=== PATIENT | female | born 1980 | race Two or more races ===

== ENCOUNTER 2020-08-21 13:42 | Emergency (ER) | payer OTHER, SELFPAY ==
--- NOTE | 2020-08-21 | ECG_ITS ---
Test Reason : cp Blood Pressure : / mmHG Vent. Rate : 084 BPM Atrial Rate : 084 BPM P-R Int : 136 ms QRS Dur : 088 ms QT Int : 404 ms P-R-T Axes : 049 009 015 degrees QTc Int : 477 ms Normal sinus rhythm with sinus arrhythmia Normal ECG When compared with ECG of 11-OCT-2016 18:49, No significant change was found Referred By: Generic ED Physician Electronically Signed By:CARLOS MOORE
--- NOTE | 2020-08-21 13:51 | XR_ITS ---
EXAMINATION: XR CHEST CLINICAL INFORMATION: Chest pain. COMPARISON: None TECHNIQUE: Frontal view of the chest was obtained. FINDINGS: No significant abnormality is noted involving the heart, lungs, mediastinum, bony thorax or soft tissues. IMPRESSION: Unremarkable examination.
--- NOTE | 2020-08-21 13:52 | ED_ITS ---
HPI - Chest Pain General Chief Complaint: Chest Pain <THEO Mays - Last Filed: 08/21/20 16:18> Stated Complaint: high blood pressure <THEO Mays - Last Filed: 08/21/20 16:18> Time Seen by Provider: 08/21/20 13:50 <THEO Mays - Last Filed: 08/21/20 16:18> Source: patient <THEO Mays - Last Filed: 08/21/20 16:18> Mode of arrival: ambulatory <THEO Mays - Last Filed: 08/21/20 16:18> Limitations: no limitations <THEO Mays - Last Filed: 08/21/20 16:18> History of Present Illness HPI narrative: 40 yo female presenting with intermittent, non-radiating central chest pressue and high blood pressure that started a few days ago. She has been on low dose Norvasc 2.5 mg daily with stable BP. She was trialed off of it a few months ago but needed to be restarted in June per patient. She states her usual BP is 130-140's systolic, but over the last few days she's noticed it has gone up to 150-160's and is associated with intermittent chest pressure, nausea and dizziness. She has been compliant with her Norvasc but admits to taking it late yesterday. She denies change in diet or salt intake. Admits to increased stress at home and recent of her family dog. Denies headache, vision changes or SOB. <THEO Mays - Last Filed: 08/21/20 16:18> MD complaint: chest heaviness <THEO Mays - Last Filed: 08/21/20 16:18> Onset (ago): day(s) (2) <THEO Mays - Last Filed: 08/21/20 16:18> Timing of current episode: episodic <THEO Mays - Last Filed: 08/21/20 16:18> Prior episodes: Yes <THEO Mays Last Filed: 08/21/20 16:18> Onset: during rest and during exertion <THEO Mays - Last Filed: 08/21/20 16:18> Pain location: substernal <THEO Mays - Last Filed: 08/21/20 16:18> Pain radiation: none <THEO Mays - Last Filed: 08/21/20 16:18> Severity: moderate <THEO Mays - Last Filed: 08/21/20 16:18> Quality: heaviness <THEO Mays - Last Filed: 08/21/20 16:18> Relieving factors: rest <THEO Mays - Last Filed: 08/21/20 16:18> Exacerbating factors: nothing <THEO Mays Last Filed: 08/21/20 16:18> Associated symptoms: nausea and leg swelling <THEO Mays - Last Filed: 08/21/20 16:18> Treatment prior to arrival: none <THEO Mays Last Filed: 08/21/20 16:18> Risk Factors Thoracic aortic dissection risk factors: longstanding hypertension <THEO Mays Last Filed: 08/21/20 16:18> Related Data On Oral Contraceptives: No <THEO Mays Last Filed: 08/21/20 16:18> Home Medications: Home Medications Medication Instructions Recorded Confirmed amlodipine 2.5 mg PO DAILY 08/21/20 08/21/20 lorazepam [Ativan] 0.5 mg PO BEDTIME PRN 08/21/20 08/21/20 omeprazole 20 mg PO DAILY 08/21/20 08/21/20 <THEO Mays Last Filed: 08/21/20 16:18> Allergies/Adverse Reactions: Allergies Allergy/AdvReac Type Severity Reaction Status Date / Time ibuprofen [IBUPROFEN] Allergy Intermediate ANGIOEDEMA Verified 08/21/20 14:27 SEAFOOD Allergy Unknown HIVES Uncoded 08/05/20 16:36 shellfish Allergy Unknown Anaphylaxis Uncoded 08/21/20 14:27 <THEO Mays Last Filed: 08/21/20 16:18> Review of Systems Review of Systems: Constitutional: No Fever, No Chills ENT/Mouth: No sore throat, No Rhinorrhea, No Swallowing Difficulty Eyes: No Eye Pain, No Swelling, No Redness Cardiovascular: negative SOB, No Orthopnea, positive Edema (chronically) Respiratory: No Cough, No Sputum, No Wheezing, no dyspnea Gastrointestinal: positive Nausea, No Vomiting, No Diarrhea, No abdominal Pain, No Hematochezia, No Melena Genitourinary: No Dysuria, No Urinary Frequency, No Hematuria Musculoskeletal: No joint pain, No Myalgias Skin: No Skin Lesions, No rash Neuro: No Weakness, No Numbness, positive positional Dizziness, No Headache Psych: positive Anxiety/Panic, No Depresion, positive stress at home Heme/Lymph: No Bruising, No Lymphadenopathy Endocrine: No Polyuria, No Polydipsia All other 10 point ROS are negative. <THEO Mays - Last Filed: 08/21/20 16:18> [facility] Past Medical History Attestation statement: The following information was validated with the patient. <THEO Manning - Last Filed: 08/21/20 16:18> Medical History: Medical History (Updated 08/21/20 @ 16:17 by THEO Mays) HTN (hypertension) Ovary absent <THEO Mays - Last Filed: 08/21/20 16:18> Social History Social History: Social History Alcohol intake: never Smoked in Last 30 Days: No Use of substances other than those prescribed or required for medical reasons: No Advance Directives: No Advance Directives Information Provided: No <THEO Mays - Last Filed: 08/21/20 16:18> Physical Exam Vital Signs and I&O and Narrative: Vital Signs and I&O: Vital Signs Temp 98.6 F 08/21/20 15:26 Pulse 88 08/21/20 15:26 Resp 20 08/21/20 15:26 BP 147/99 H 08/21/20 15:26 Pulse Ox 99 08/21/20 15:26 Intake & Output 08/21/20 08/21/20 08/22/20 06:59 18:59 06:59 Weight 185 kg Body Mass Index 69.9 Appearance: Alert. Oriented X3. No acute distress. Eyes: Pupils equal, round and reactive to light. ENT: Pharynx normal. Neck: Normal inspection. Neck supple. CVS: Normal heart rate and rhythm. Pulses normal. Respiratory: No respiratory distress. Breath sounds normal. Abdomen: Soft and nontender. +BS x4 Skin: Skin warm and dry. Normal skin color. Normal skin turgor. No rashes. Extremities: No lower extremity edema. Neuro: Oriented X 3. No motor deficit. No sensory deficit. <THEO Mays Last Filed: 08/21/20 16:18> Vital Signs and I&O: Vital Signs Temp 98.6 F 08/21/20 15:26 Pulse 88 08/21/20 15:26 Resp 20 08/21/20 15:26 BP 147/99 H 08/21/20 15:26 Pulse Ox 99 08/21/20 15:26 Intake & Output 08/21/20 08/21/20 08/22/20 06:59 18:59 06:59 Weight 185 kg Body Mass Index 69.9 <José Rice DO - Last Filed: 08/21/20 19:26> Course Course Hospital Course: BP 171/108 on arrival. She is in no distress, reports mild chest pressure at this time and nausea. She is anxious. No SOB or diaphoresis. No significant family history. Patient reassured and repeat BP improved to 158/94. Low dose morphine and Zofran ordered for now. Hold off on additional antihypertensives for now. Low suspicion for dissection or PE. Wells score 0. EKG showed no ische noel changes. Will r/o ACS with high-sensitivity troponin. <THEO Mays - Last Filed: 08/21/20 16:18> Reevaluation(s) Reevaluation #1: BP improved to the 140's systolic. Orthostatics negative, increased with standing. Troponin negative. No need to repeat given onset of chest pain was 1-2 days ago. Patient is stable for discharge with plan to f/u [facility] PCP. <THEO Mays - Last Filed: 08/21/20 16:18> Time: 16:09 <THEO Mays - Last Filed: 08/21/20 16:18> MDM - Chest Pain Differential Diagnosis Differential diagnosis: Likely fracture of rib, stable angina, unstable angina pectoris, atypical chest pain, st elevation myocardial infarction, costochondritis, chest pain and biliary colic <THEO Mays - Last Filed: 08/21/20 16:18> Lab Data Result diagrams: : 08/21/20 14:23 08/21/20 14:23 <THEO Mays - Last Filed: 08/21/20 16:18> Labs: Lab Results 08/21/20 08/21/20 08/21/20 Range/Units 14:23 14:23 14:23 WBC 8.0 (4.8-10.8) X10*3/uL RBC 5.12 (4.20-5.50) X10*6/uL Hgb 13.7 (12.0-16.0) g/dl Hct 43.9 (37-47) % MCV 85.7 (80-98) fL MCH 26.8 L (27.0-33.0) pg MCHC 31.2 (31.0-35.0) g/dl RDW 12.6 (11.0-16.0) % Plt Count 221 (160-400) X10*3/uL MPV 11.7 (9.4-12.3) fL Immature Gran % (Auto) 0.2 (0.0-0.4) % Neut % (Auto) 49.3 (45-73) % Lymph % (Auto) 39.0 (20-40) % Crane % (Auto) 8.3 (2-11) % Eos % (Auto) 2.2 (0-4) % Baso % (Auto) 1.0 (0-2) % Neut # (Auto) 4.0 (2.0-8.3) X10*3/uL Lymph # (Auto) 3.1 (1.2-4.9) X10*3/uL Crane # (Auto) 0.7 (0.1-1.2) X10*3/uL Eos # (Auto) 0.2 (0.0-0.4) X10*3/uL Baso # (Auto) 0.1 (0.0-0.2) X10*3/uL Abs Immat Gran (auto) 0.02 (0.00-0.03) X10*3/uL Absolute Nucleated RBC 0.000 (0.0-0.012) X10*3/uL Nucleated RBC % (auto) 0.0 (0.0-0.2) /100WBC Hold Blue Top SEE NOTE Sodium 141 (135-145) mmol/L Potassium 4.0 (3.3-5.1) mmol/l Chloride 103 (96-108) mmol/L Carbon Dioxide 30 H (22-29) mmol/L Anion Gap 12 (12-20) BUN 8 L (9-16) mg/dL Creatinine 0.85 (0.5-1.4) mg/dL Estim Creat Clear Calc 146.8 Estimated GFR > 60 Random Glucose 98 (60-115) mg/dL Calcium 9.8 (8.4-10.2) mg/dL Total Bilirubin 0.6 (0.0-1.0) mg/dL Direct Bilirubin 0.3 (0.0-0.5) mg/dL AST 196 H (5-31) U/L ALT 230 H (0-31) U/L Alkaline Phosphatase 82 (39-117) U/L Troponin I High Sens (<3.5-17.0) ng/L B-Natriuretic Peptide (<100) pg/mL Total Protein 6.9 (6.5-8.0) g/dL Albumin 4.1 (3.5-5.0) g/dL 08/21/20 Range/Units 14:23 WBC (4.8-10.8) X10*3/uL RBC (4.20-5.50) X10*6/uL Hgb (12.0-16.0) g/dl Hct (37-47) % MCV (80-98) fL MCH (27.0-33.0) pg MCHC (31.0-35.0) g/dl RDW (11.0-16.0) % Plt Count (160-400) X10*3/uL MPV (9.4-12.3) fL Immature Gran % (Auto) (0.0-0.4) % Neut % (Auto) (45-73) % Lymph % (Auto) (20-40) % Crane % (Auto) (2-11) % Eos % (Auto) (0-4) % Baso % (Auto) (0-2) % Neut # (Auto) (2.0-8.3) X10*3/uL Lymph # (Auto) (1.2-4.9) X10*3/uL Crane # (Auto) (0.1-1.2) X10*3/uL Eos # (Auto) (0.0-0.4) X10*3/uL Baso # (Auto) (0.0-0.2) X10*3/uL Abs Immat Gran (auto) (0.00-0.03) X10*3/uL Absolute Nucleated RBC (0.0-0.012) X10*3/uL Nucleated RBC % (auto) (0.0-0.2) /100WBC Hold Blue Top Sodium (135-145) mmol/L Potassium (3.3-5.1) mmol/l Chloride (96-108) mmol/L Carbon Dioxide (22-29) mmol/L Anion Gap (12-20) BUN (9-16) mg/dL Creatinine (0.5-1.4) mg/dL Estim Creat Clear Calc Estimated GFR Random Glucose (60-115) mg/dL Calcium (8.4-10.2) mg/dL Total Bilirubin (0.0-1.0) mg/dL Direct Bilirubin (0.0-0.5) mg/dL AST (5-31) U/L ALT (0-31) U/L Alkaline Phosphatase (39-117) U/L Troponin I High Sens < 3.5 (<3.5-17.0) ng/L B-Natriuretic Peptide < 10 (<100) pg/mL Total Protein (6.5-8.0) g/dL Albumin (3.5-5.0) g/dL <THEO Mays - Last Filed: 08/21/20 16:18> Lab Results 08/21/20 08/21/20 08/21/20 Range/Units 14:23 14:23 14:23 WBC 8.0 (4.8-10.8) X10*3/uL RBC 5.12 (4.20-5.50) X10*6/uL Hgb 13.7 (12.0-16.0) g/dl Hct 43.9 (37-47) % MCV 85.7 (80-98) fL MCH 26.8 L (27.0-33.0) pg MCHC 31.2 (31.0-35.0) g/dl RDW 12.6 (11.0-16.0) % Plt Count 221 (160-400) X10*3/uL MPV 11.7 (9.4-12.3) fL Immature Gran % (Auto) 0.2 (0.0-0.4) % Neut % (Auto) 49.3 (45-73) % Lymph % (Auto) 39.0 (20-40) % Crane % (Auto) 8.3 (2-11) % Eos % (Auto) 2.2 (0-4) % Baso % (Auto) 1.0 (0-2) % Neut # (Auto) 4.0 (2.0-8.3) X10*3/uL Lymph # (Auto) 3.1 (1.2-4.9) X10*3/uL Crane # (Auto) 0.7 (0.1-1.2) X10*3/uL Eos # (Auto) 0.2 (0.0-0.4) X10*3/uL Baso # (Auto) 0.1 (0.0-0.2) X10*3/uL Abs Immat Gran (auto) 0.02 (0.00-0.03) X10*3/uL Absolute Nucleated RBC 0.000 (0.0-0.012) X10*3/uL Nucleated RBC % (auto) 0.0 (0.0-0.2) /100WBC Hold Blue Top SEE NOTE Sodium 141 (135-145) mmol/L Potassium 4.0 (3.3-5.1) mmol/l Chloride 103 (96-108) mmol/L Carbon Dioxide 30 H (22-29) mmol/L Anion Gap 12 (12-20) BUN 8 L (9-16) mg/dL Creatinine 0.85 (0.5-1.4) mg/dL Estim Creat Clear Calc 146.8 Estimated GFR > 60 Random Glucose 98 (60-115) mg/dL Calcium 9.8 (8.4-10.2) mg/dL Total Bilirubin 0.6 (0.0-1.0) mg/dL Direct Bilirubin 0.3 (0.0-0.5) mg/dL AST 196 H (5-31) U/L ALT 230 H (0-31) U/L Alkaline Phosphatase 82 (39-117) U/L Troponin I High Sens (<3.5-17.0) ng/L B-Natriuretic Peptide (<100) pg/mL Total Protein 6.9 (6.5-8.0) g/dL Albumin 4.1 (3.5-5.0) g/dL 08/21/20 Range/Units 14:23 WBC (4.8-10.8) X10*3/uL RBC (4.20-5.50) X10*6/uL Hgb (12.0-16.0) g/dl Hct (37-47) % MCV (80-98) fL MCH (27.0-33.0) pg MCHC (31.0-35.0) g/dl RDW (11.0-16.0) % Plt Count (160-400) X10*3/uL MPV (9.4-12.3) fL Immature Gran % (Auto) (0.0-0.4) % Neut % (Auto) (45-73) % Lymph % (Auto) (20-40) % Crane % (Auto) (2-11) % Eos % (Auto) (0-4) % Baso % (Auto) (0-2) % Neut # (Auto) (2.0-8.3) X10*3/uL Lymph # (Auto) (1.2-4.9) X10*3/uL Crane # (Auto) (0.1-1.2) X10*3/uL Eos # (Auto) (0.0-0.4) X10*3/uL Baso # (Auto) (0.0-0.2) X10*3/uL Abs Immat Gran (auto) (0.00-0.03) X10*3/uL Absolute Nucleated RBC (0.0-0.012) X10*3/uL Nucleated RBC % (auto) (0.0-0.2) /100WBC Hold Blue Top Sodium (135-145) mmol/L Potassium (3.3-5.1) mmol/l Chloride (96-108) mmol/L Carbon Dioxide (22-29) mmol/L Anion Gap (12-20) BUN (9-16) mg/dL Creatinine (0.5-1.4) mg/dL Estim Creat Clear Calc Estimated GFR Random Glucose (60-115) mg/dL Calcium (8.4-10.2) mg/dL Total Bilirubin (0.0-1.0) mg/dL Direct Bilirubin (0.0-0.5) mg/dL AST (5-31) U/L ALT (0-31) U/L Alkaline Phosphatase (39-117) U/L Troponin I High Sens < 3.5 (<3.5-17.0) ng/L B-Natriuretic Peptide < 10 (<100) pg/mL Total Protein (6.5-8.0) g/dL Albumin (3.5-5.0) g/dL <José Rice DO - Last Filed: 08/21/20 19:26> ECG Data ECG #1: Attestation: I personally reviewed and interpreted this ECG as follows: <THEO Mays - Last Filed: 08/21/20 16:18> ECG interpretation date: 08/21/20 <THEO Mays - Last Filed: 08/21/20 16:18> ECG interpretation time: 13:55 <THEO Mays - Last Filed: 08/21/20 16:18> Interpretation: normal sinus rhythm with HR 84 bpm, normal WI interval <THEO Mays - Last Filed: 08/21/20 16:18> Critical Care Time Critical Care Time Critical Care Time: No <THEO Mays - Last Filed: 08/21/20 16:18> Discharge Plan Discharge Clinical Impression: Transaminitis Chest pain Qualifiers: Chest pain type: unspecified Qualified Code(s): R07.9 - Chest pain, unspecified Hypertension Qualifiers: Hypertension type: essential hypertension Qualified Code(s): I10 - Essential (primary) hypertension <THEO Mays - Last Filed: 08/21/20 16:18> Patient Disposition: Home, Self-Care <THEO Mays - Last Filed: 08/21/20 16:18> Instructions: Chronic Hypertension (ED) <THEO Mays - Last Filed: 08/21/20 16:18> Additional Instructions: Continue taking your amlodipine as directed. Monitor your blood pressure daily at home. Follow up with your PCP this week for possible medication adjustment. Today in the ER your blood pressure improved and no medication adjustment was needed. Your lab work showed elevation of your liver enzymes which is non-specific. Recommend you get repeat blood work with your doctor this week. Stick to a low salt, heart healthy diet. If you develop recurrent chest pain, headache or dizziness come back to the ER for further evaluation. <THEO Mays - Last Filed: 08/21/20 16:18> Prescriptions: No Action amlodipine 2.5 mg Tablet 2.5 mg PO DAILY RF: 0 lorazepam [Ativan] 0.5 mg Tablet 0.5 mg PO BEDTIME PRN (Reason: Anxiety) RF: 0 omeprazole 20 mg Capsule,Delayed Release(Dr/Ec) 20 mg PO DAILY RF: 0 <THEO Mays - Last Filed: 08/21/20 16:18> Referrals: Dexter Perea MD [Physician] - 1 week <THEO Mays - Last Filed: 08/21/20 16:18> Interventions: ED Discharge Assessment Last Done: 08/21/20 16:55 <THEO Mays - Last Filed: 08/21/20 16:18> Discharge Date/Time: 08/21/20 16:56 <THEO Mays - Last Filed: 08/21/20 16:18>
[2020-08-21 13:53] VITALS: BP 171/108; PULSE 80; RESP 16; TEMP 37.1; O2SAT 99; BMI 69.9
[2020-08-21 14:27] VITALS: BP 158/94
[2020-08-21] MEDS: Morphine Sulfate 2 MG/ML CARTRIDGE IVPUSH (14:31)
[2020-08-21] MEDS: ondansetron HCL 4 MG/2 ML VIAL IVPUSH (14:31)
[2020-08-21 14:34] LABS: MANUAL DIFF FLAG NO
[2020-08-21 14:36] LABS: Basophils Absolute Auto 0.1 X10*3/uL (0.0-0.2); Eosinophils Absolute Auto 0.2 X10*3/uL (0.0-0.4); Eosinophils Percent Auto 2.2 % (0-4); Hematocrit 43.9 % (37-47); Hemoglobin 13.7 g/dl (12.0-16.0); Imm Gran Abs Auto 0.02 X10*3/uL (0.00-0.03); Imm Gran Pct Auto 0.2 % (0.0-0.4); Lymphocytes Absolute Auto 3.1 X10*3/uL (1.2-4.9); Mean Corpuscular HGB Conc 31.2 g/dl (31.0-35.0); Mean Corpuscular Hemoglobin 26.8 pg (27.0-33.0); Mean Corpuscular Volume 85.7 fL (80-98); Mean Platelet Volume 11.7 fL (9.4-12.3); Monocytes Absolute Auto 0.7 X10*3/uL (0.1-1.2); Monocytes Percent Auto 8.3 % (2-11); Neutrophils Percent Auto 49.3 % (45-73); Platelet Count 221 X10*3/uL (160-400); Red Blood Count 5.12 X10*6/uL (4.20-5.50); Red Cell Distribution Width 12.6 % (11.0-16.0)
[2020-08-21 15:00] LABS: Alanine Aminotransferase 230 U/L (0-31); Albumin Level 4.1 g/dL (3.5-5.0); Alkaline Phosphatase 82 U/L (39-117); Anion Gap 12 (12-20); Aspartate Amino Transferase 196 U/L (5-31); B Type Natriuretic Peptide < 10 pg/mL (<100); Bilirubin Direct 0.3 mg/dL (0.0-0.5); Bilirubin Total 0.6 mg/dL (0.0-1.0); Blood Urea Nitrogen 8 mg/dL (9-16); Calcium 9.8 mg/dL (8.4-10.2); Carbon Dioxide 30 mmol/L (22-29); Chloride 103 mmol/L (96-108); Creatinine Clr Calc Pharmacy 146.8; Estimated Glomerular Filt Rate > 60; Glucose Random 98 mg/dL (60-115); Sodium 141 mmol/L (135-145); Total Protein 6.9 g/dL (6.5-8.0); Troponin-I High Sensitivity < 3.5 ng/L (<3.5-17.0)
[2020-08-21 15:26] VITALS: BP 130/85; BP 147/99; PULSE 79; PULSE 88; RESP 20; TEMP 37; O2SAT 99
== END 2020-08-21 16:56 | disposition home or self-care (01) ==
PROVIDERS: Physician Assistant; Emergency Provider Emergency Medicine; PCP Nurse Practitioner
DX: R07.9 Chest pain, unspecified (principal); I10 Essential (primary) hypertension; Z79.899 Other long term (current) drug therapy
CPT/HCPCS: 36415; 71045; 80048; 80076; 83880; 84484; 85025; 93005; 93010; 96374; 96375; 99284; J2270; J2405

== ENCOUNTER 2023-01-24 12:55 | Emergency (ER) | payer OTHER, SELFPAY ==
--- NOTE | ~2023-01-24 | XR_ITS ---
EXAMINATION: XR CHEST CLINICAL INFORMATION: Cough COMPARISON: 08/21/2020 TECHNIQUE: 2 views of the chest were obtained. FINDINGS: The lungs are well expanded. No edema or effusion. There is a hazy opacity at the right midlung.. No pneumothorax. The cardiomediastinal silhouette is within normal limits. No acute osseous abnormality. XR/XR chest 2V IMPRESSION: Hazy opacity at the right midlung could represent atelectasis or pneumonia. Follow-up after treatment to ensure resolution.
--- NOTE | 2023-01-24 12:57 | ECG_ITS ---
Test Reason : JONESEDYTA Blood Pressure : / mmHG Vent. Rate : 078 BPM Atrial Rate : 078 BPM P-R Int : 150 ms QRS Dur : 086 ms QT Int : 406 ms P-R-T Axes : 039 004 001 degrees QTc Int : 462 ms Normal sinus rhythm Nonspecific ST and T wave abnormality Borderline ECG When compared with ECG of 21-AUG-2020 13:45, Nonspecific ST and T wave abnormality seen Referred By: Generic ED Physician Electronically Signed By:RAMESH RASMUSSEN
[2023-01-24 12:58] VITALS: BP 178/121; PULSE 99; RESP 18; TEMP 36.1; O2SAT 99; BMI 33.6
--- NOTE | 2023-01-24 13:00 | ED.CHESTPAIN ---
HPI - Chest Pain General Chief Complaint: Upper Respiratory Symptoms <THEO Mays - Last Filed: 01/24/23 13:05> Stated Complaint: Chest pain/Asthma <THEO Mays - Last Filed: 01/24/23 13:05> Time Seen by Provider: 01/24/23 13:48 <THEO Mays - Last Filed: 01/24/23 13:05> Source: patient <THEO Dunn Last Filed: 01/24/23 16:48> Mode of arrival: ambulatory <THEO Dunn Last Filed: 01/24/23 16:48> Limitations: no limitations <THEO Dunn Last Filed: 01/24/23 16:48> History of Present Illness HPI narrative: Pt is a 42 y/o female with pMHX of htn, GERD, and asthma, cc chest wall pain and unproductive cough that started 5 days ago. She explains that she has reflux that tends to wake her up at times and she tries to sleep with a couple of pillows. She sometimes has a cough for a couple days after experiencing these episodes of GERD and originally related her symptoms to that. She explains that Sunday and Sunday she was not feeling well and then yesterday she started having pain on the left side of her chest that radiates to the back and increases with coughing and inspiration. She has used her rescue inhaler which helps a little. She also said she has had a headache and nausea at times throughout the past few days. She denies fever, dizziness, sob, abd pain, vomiting, diarrhea, pelvic pain or extremity pain. <THEO Dunn Last Filed: 01/24/23 16:48> MD complaint: chest pain <THEO Dunn Last Filed: 01/24/23 16:48> Pertinent past history: asthma and other (related cough preceding the pain) <THEO Dunn Last Filed: 01/24/23 16:48> Onset (ago): day(s) (5) <THEO Dunn Last Filed: 01/24/23 16:48> Timing of current episode: episodic <THEO Dunn Last Filed: 01/24/23 16:48> Onset: other (started with coughing episodes) <THEO Dunn Last Filed: 01/24/23 16:48> Pain location: left chest <THEO Dunn Last Filed: 01/24/23 16:48> Pain radiation: back <THEO Dunn Last Filed: 01/24/23 16:48> Severity: mild <THEO Dunn Last Filed: 01/24/23 16:48> Quality: aching <THEO Dunn Last Filed: 01/24/23 16:48> Exacerbating factors: inspiration <THEO Dunn Last Filed: 01/24/23 16:48> Associated symptoms: cough <THEO Dunn Last Filed: 01/24/23 16:48> Treatment prior to arrival: none <THEO Dunn Last Filed: 01/24/23 16:48> Risk Factors Coronary artery disease risk factors: hypertension <THEO Dunn Last Filed: 01/24/23 16:48> Related Data Home Medications: Home Medications Medication Instructions Recorded Confirmed amlodipine 2.5 mg tablet 2.5 mg PO DAILY 08/21/20 08/21/20 lorazepam 0.5 mg tablet (Ativan) 0.5 mg PO BEDTIME PRN Anxiety 08/21/20 08/21/20 omeprazole 20 mg capsule,delayed 20 mg PO DAILY 08/21/20 08/21/20 release Previous Rx's Medication Instructions Recorded benzonatate 100 mg capsule 100 mg PO BID PRN cough 7 days #14 01/24/23 caps doxycycline hyclate 100 mg tablet 100 mg PO BID 7 days #14 tabs 01/24/23 omeprazole 20 mg capsule,delayed 20 mg PO DAILY #30 caps 01/24/23 release prednisone 20 mg tablet 20 mg PO DAILY 7 days #7 tabs 01/24/23 <THEO Mays Last Filed: 01/24/23 13:05> Allergies/Adverse Reactions: Allergies Allergy/AdvReac Type Severity Reaction Status Date / Time ibuprofen [IBUPROFEN] Allergy Intermediate ANGIOEDEMA Verified 08/21/20 14:27 SEAFOOD Allergy Unknown HIVES Uncoded 08/05/20 16:36 shellfish Allergy Unknown Anaphylaxis Uncoded 08/21/20 14:27 <Yamilet Durbin [facility] Last Filed: 01/24/23 13:05> Review of Systems Constitutional: Constitutional: Reports no additional constitutional complaints, Denies chills, Denies fever(s) and Denies night sweats <THEO Dunn Last Filed: 01/24/23 16:48> Eyes: Eyes: Reports no additional eye complaints, Denies blurry vision, Denies change in vision, Denies diplopia, Denies eye discharge, Denies loss of vision and Denies eye pain <Laura Headley [facility] Last Filed: 01/24/23 16:48> ENT: Denies dizziness <THEO Dunn Last Filed: 01/24/23 16:48> Cardiovascular: Cardiovascular: Reports no additional cardiovascular complaints, Reports chest pain, Denies lightheadedness, Denies Loss of Consciousness and Denies dyspnea <THEO Dunn Last Filed: 01/24/23 16:48> Respiratory: Respiratory: Reports no additional respiratory complaints, Reports cough and Denies dyspnea <THEO Dunn Last Filed: 01/24/23 16:48> Gastrointestinal: Gastrointestinal: Reports no additional gastrointestinal complaints, Denies abdominal pain, Denies melena, Denies hematochezia, Denies change in bowel habits and Denies change in stool character <THEO Dunn Last Filed: 01/24/23 16:48> Genitourinary: Genitourinary: Denies hematuria, Denies urinary frequency, Denies dysuria, Denies urinary incontinence, Denies urinary hesitancy and Denies urinary urgency <THEO Dunn Last Filed: 01/24/23 16:48> Musculoskeletal: Musculoskeletal: Reports no additional musculoskeletal complaints, Denies numbness and Denies tingling <THEO Dunn Last Filed: 01/24/23 16:48> Neurologic: Denies dizziness, Denies loss of vision, Denies numbness and Denies tingling <THEO Dunn Last Filed: 01/24/23 16:48> Psychiatric: Psychiatric: Reports no additional psychiatric complaints <THEO Dunn Last Filed: 01/24/23 16:48> Endocrine: Endocrine: Reports no additional endocrine complaints <THEO Dunn - Last Filed: 01/24/23 16:48> Hematologic/Lymphatic: Hematologic/Lymphatic: Reports no additional hematologic/lymphatic complaints <THEO Dunn - Last Filed: 01/24/23 16:48> Allergic/Immunologic: Allergic/Immunologic: Reports no additional allergic/immunologic complaints <THEO Dunn - Last Filed: 01/24/23 16:48> PMFSH Past Medical History Attestation statement: The following information was validated with the patient. <THEO Dunn - Last Filed: 01/24/23 16:48> Source: old records reviewed and nursing notes reviewed <THEO Dunn - Last Filed: 01/24/23 16:48> Medical History: Medical History HTN (hypertension) Ovary absent <THEO Mays - Last Filed: 01/24/23 13:05> Social History Social History: Social History Alcohol intake: never Advance Directives: No Advance Directives Information Provided: No <THEO Mays - Last Filed: 01/24/23 13:05> Physical Exam Vital Signs: Vital Signs: Last Vital Signs Temp 97.7 F 01/24/23 14:09 Pulse 87 01/24/23 14:09 Resp 18 01/24/23 14:09 BP 149/98 H 01/24/23 14:09 Pulse Ox 98 01/24/23 14:09 O2 Del Method 01/24/23 14:09 BMI result Body Mass Index 33.6 <THEO Mays - Last Filed: 01/24/23 13:05> Vital Signs: Last Vital Signs Temp 97.7 F 01/24/23 14:09 Pulse 87 01/24/23 14:09 Resp 18 01/24/23 14:09 BP 149/98 H 01/24/23 14:09 Pulse Ox 98 01/24/23 14:09 O2 Del Method 01/24/23 14:09 BMI result Body Mass Index 33.6 <THEO Dunn - Last Filed: 01/24/23 16:48> Const: General: cooperative, no acute distress, alert and awake <Laura Kayode CT - Last Filed: 01/24/23 16:48> Nutritional Appearance: well nourished <Lauragarth Marioshell CT - Last Filed: 01/24/23 16:48> Orientation/consciousness: patient oriented x3 <Laura Marioshell CT - Last Filed: 01/24/23 16:48> Limitations: no limitations <Lauragarth Marioshell CT - Last Filed: 01/24/23 16:48> HEENT: Head: Yes normal to inspection and Yes atraumatic <Laura Marioshell CT - Last Filed: 01/24/23 16:48> Ears: hearing grossly normal bilaterally and external ears normal <Laura Kayode CT - Last Filed: 01/24/23 16:48> General nose exam: Normal external nose present, no nasal discharge noted and no epistaxis <Laura Headley, CT - Last Filed: 01/24/23 16:48> Face and sinus: Yes normal facial exam, No abrasion and No laceration <Laura Headley CT - Last Filed: 01/24/23 16:48> Mouth: Normal oral and palatal mucosa present, no drooling and no muffled voice <Laura Kayode CT - Last Filed: 01/24/23 16:48> Eyes: General: appearance normal, both eyes and all related structures <Lauragarth Marioshell CT - Last Filed: 01/24/23 16:48> Periorbital: periorbital findings normal <Laura Headley CT - Last Filed: 01/24/23 16:48> Eyelids: Yes eyelids normal <Laura Kayode CT - Last Filed: 01/24/23 16:48> Conjunctivae: conjunctivae normal <Laura Headley CT - Last Filed: 01/24/23 16:48> Pupils: Equal, round and reactive pupils present <Laura Headley CT - Last Filed: 01/24/23 16:48> EOM: EOMs intact bilaterally <Laura Headley CT - Last Filed: 01/24/23 16:48> Neck: Neck: Yes normal visual inspection, Yes full ROM and Yes no lymphadenopathy <Laura Headley CT - Last Filed: 01/24/23 16:48> Chest: Chest palpation & inspection: normal inspection of the chest <Laura Headley [facility] Last Filed: 01/24/23 16:48> Resp: Effort & Inspection: normal respiratory effort and able to speak in complete sentences <Laura Headley [facility] Last Filed: 01/24/23 16:48> Auscultation: clear to auscultation bilaterally <Laura Headley CT - Last Filed: 01/24/23 16:48> Cardio: Rate: regular rate <Laura Headley [facility] Last Filed: 01/24/23 16:48> Rhythm: regular rhythm <Laura Headley [facility] Last Filed: 01/24/23 16:48> GI: Inspection: Yes normal to inspection <Laura Headley [facility] Last Filed: 01/24/23 16:48> Palpation (GI): Soft to palpation, not firm, nontender and no guarding <Laura Headley CT - Last Filed: 01/24/23 16:48> Neuro: General: patient oriented x3 and moves all extremities <Laura Headley CT - Last Filed: 01/24/23 16:48> Cranial nerves: Yes Equal, round and reactive pupils present <Laura Headley [facility] Last Filed: 01/24/23 16:48> Cognition (Neuro): normal cognition <Laura Headley [facility] Last Filed: 01/24/23 16:48> Motor exam (neuro): 5/5 motor strength present throughout <Laura Headley [facility] Last Filed: 01/24/23 16:48> Sensory Exam: Normal double simultaneous stimulation for sensation <Laura Headley [facility] Last Filed: 01/24/23 16:48> Coordination: [id number] test normal <Laura Headley [facility] Last Filed: 01/24/23 16:48> Extrem: General: Yes normal to inspection, Yes full ROM and Yes capillary refill normal <Laura Headley [facility] Last Filed: 01/24/23 16:48> Psych: Appearance: grossly normal <Laura Headley [facility] Last Filed: 01/24/23 16:48> Mental Status: mental status grossly normal <Laura Headley CT - Last Filed: 01/24/23 16:48> Affect: normal affect <THEO Dunn - Last Filed: 01/24/23 16:48> Attitude: cooperative <THEO Dunn - Last Filed: 01/24/23 16:48> Thought process: Normal thought process present <THEO Dunn Last Filed: 01/24/23 16:48> Thought content: Normal thought content present <THEO Dunn Last Filed: 01/24/23 16:48> Insight: Good insight present (Psych) <THEO Dunn - Last Filed: 01/24/23 16:48> Course Course Course Narrative: RME - 42 yo female with history of asthma, GERD, HTN, irritable bowel syndrome who presents to the ER for evaluation of chest pain since yesterday. Patient states that 6 days ago, she woke up coughing with acid reflux in the middle of the night. Since then, she has been coughing. Yesterday, she developed constant left sided chest pain that radiates to her left back. Also states that she has a headache. BP in triage is 178/121. Lungs clear to auscultation. Has had wheezing at bedtime. Plan: Labs, EKG, chest x-ray, and COVID swab. <THEO Mays - Last Filed: 01/24/23 13:05> Medical Decision Making Medical Decision Making MDM Narrative: Patient is a 42 year old assigned female at with a history of asthma, GERD, and HTN presenting to the emergency department today with a cough and left sided intermittent chest pain. Patient's physical exam was unremarkable. Patient's blood work was unremarkable. Patient's urine showed no acute process. Patient's EKG was unremarkable. Patient's chest x-ray showed a hazy opacity at the right midlung that could represent atelectasis or pneumonia. I explained my physical exam findings as well as all test results to the patient. I answered all questions asked by the patient. I stressed the importance of the patient taking her medication as prescribed. I stressed the importance of the patient following up with her primary care provider. I stressed the importance of the patient returning to the emergency department immediately if her symptoms were to worsen or if she were to develop any dizziness, shortness of breath, difficulty breathing, chest pain, blurry vision, loss of vision, nausea, vomiting, abdominal pain, fever, chills, back pain, or any other complaints. Patient verbalized agreement and understanding with this treatment plan and discharge. <THEO Dunn - Last Filed: 01/24/23 16:48> Differential Diagnosis Differential Diagnoses: The differential diagnosis associated with the presentation includes <THEO Dunn - Last Filed: 01/24/23 16:48> bronchitis <THEO Dunn - Last Filed: 01/24/23 16:48> Lab Data MDM Lab Attestation statement: I reviewed the patient's lab results. <THEO Dunn - Last Filed: 01/24/23 16:48> Result Diagrams: 01/24/23 13:46 01/24/23 13:46 <THEO Mays - Last Filed: 01/24/23 13:05> Labs: Lab Results 01/24/23 01/24/23 01/24/23 Range/Units 13:46 13:46 13:46 WBC 6.3 (4.8-10.8) X10*3/uL RBC 5.02 (4.20-5.50) X10*6/uL Hgb 13.3 (12.0-16.0) g/dl Hct 42.3 (37.0-47.0) % MCV 84.3 (80.0-98.0) fL MCH 26.5 L (27.0-33.0) pg MCHC 31.4 (31.0-35.0) g/dl RDW 13.0 (11.0-16.0) % Plt Count 185 (160-400) X10*3/uL MPV 11.5 (9.4-12.3) fL Immature Gran % (Auto) 0.3 (0.0-0.4) % Neut % (Auto) 41.8 L (45-73) % Lymph % (Auto) 43.0 H (20-40) % [place] % (Auto) 9.5 (2-11) % Eos % (Auto) 4.6 H (0-4) % Baso % (Auto) 0.8 (0-2) % Lymph # (Auto) 2.7 (1.2-4.9) X10*3/uL [place] # (Auto) 0.6 (0.1-1.2) X10*3/uL Eos # (Auto) 0.3 (0.0-0.4) X10*3/uL Baso # (Auto) 0.1 (0.0-0.2) X10*3/uL Abs Immat Gran (auto) 0.02 (0.00-0.03) X10*3/uL Absolute Neuts (auto) 2.6 (2.0-8.3) x10*3/uL Absolute Nucleated RBC 0.000 (0.0-0.012) X10*3/uL Nucleated RBC % (auto) 0.0 (0.0-0.2) /100WBC PT (10.0-13.1) SEC INR (0.9-1.1) APTT (26.0-36.4) SEC Sodium 142 (135-145) mmol/L Potassium 3.7 (3.3-5.1) mmol/L Chloride 106 (96-108) mmol/L Carbon Dioxide 25 (22-29) mmol/L Anion Gap 15 (12-20) BUN 8 L (9-16) mg/dL Creatinine 0.86 (0.5-1.4) mg/dL Estim Creat Clear Calc 87.7 Estimated GFR > 60 Random Glucose 103 (60-115) mg/dL Calcium 8.9 D (8.4-10.2) mg/dL Magnesium 1.8 (1.6-2.6) mg/dL Total Bilirubin 0.7 (0.0-1.0) mg/dL Direct Bilirubin 0.2 (0.0-0.5) mg/dL AST 65 H (5-31) U/L ALT 98 H (0-31) U/L Alkaline Phosphatase 78 (39-117) U/L Troponin I High Sens < 3.5 (<3.5-17.0) ng/L Total Protein 6.8 (6.5-8.0) g/dL Albumin 3.9 (3.5-5.0) g/dL COVID-19 (KENNETH) (Negative) COVID-19 Clin Com Influenza Type A (GERARD) (Negative) Influenza Type B (GERARD) (Negative) Influenza A & B Note 01/24/23 01/24/23 01/24/23 Range/Units 13:46 13:46 13:46 WBC (4.8-10.8) X10*3/uL RBC (4.20-5.50) X10*6/uL Hgb (12.0-16.0) g/dl Hct (37.0-47.0) % MCV (80.0-98.0) fL MCH (27.0-33.0) pg MCHC (31.0-35.0) g/dl RDW (11.0-16.0) % Plt Count (160-400) X10*3/uL MPV (9.4-12.3) fL Immature Gran % (Auto) (0.0-0.4) % Neut % (Auto) (45-73) % Lymph % (Auto) (20-40) % [place] % (Auto) (2-11) % Eos % (Auto) (0-4) % Baso % (Auto) (0-2) % Lymph # (Auto) (1.2-4.9) X10*3/uL [place] # (Auto) (0.1-1.2) X10*3/uL Eos # (Auto) (0.0-0.4) X10*3/uL Baso # (Auto) (0.0-0.2) X10*3/uL Abs Immat Gran (auto) (0.00-0.03) X10*3/uL Absolute Neuts (auto) (2.0-8.3) x10*3/uL Absolute Nucleated RBC (0.0-0.012) X10*3/uL Nucleated RBC % (auto) (0.0-0.2) /100WBC PT 11.4 (10.0-13.1) SEC INR 1.0 (0.9-1.1) APTT 28.6 (26.0-36.4) SEC Sodium (135-145) mmol/L Potassium (3.3-5.1) mmol/L Chloride (96-108) mmol/L Carbon Dioxide (22-29) mmol/L Anion Gap (12-20) BUN (9-16) mg/dL Creatinine (0.5-1.4) mg/dL Estim Creat Clear Calc Estimated GFR Random Glucose (60-115) mg/dL Calcium (8.4-10.2) mg/dL Magnesium (1.6-2.6) mg/dL Total Bilirubin (0.0-1.0) mg/dL Direct Bilirubin (0.0-0.5) mg/dL AST (5-31) U/L ALT (0-31) U/L Alkaline Phosphatase (39-117) U/L Troponin I High Sens (<3.5-17.0) ng/L Total Protein (6.5-8.0) g/dL Albumin (3.5-5.0) g/dL COVID-19 (KENNETH) Negative (Negative) COVID-19 Clin Com See Note Influenza Type A (GERARD) Negative (Negative) Influenza Type B (GERARD) Negative (Negative) Influenza A & B Note See Note <THEO Mays - Last Filed: 01/24/23 13:05> Lab Results 01/24/23 01/24/23 01/24/23 Range/Units 13:46 13:46 13:46 WBC 6.3 (4.8-10.8) X10*3/uL RBC 5.02 (4.20-5.50) X10*6/uL Hgb 13.3 (12.0-16.0) g/dl Hct 42.3 (37.0-47.0) % MCV 84.3 (80.0-98.0) fL MCH 26.5 L (27.0-33.0) pg MCHC 31.4 (31.0-35.0) g/dl RDW 13.0 (11.0-16.0) % Plt Count 185 (160-400) X10*3/uL MPV 11.5 (9.4-12.3) fL Immature Gran % (Auto) 0.3 (0.0-0.4) % Neut % (Auto) 41.8 L (45-73) % Lymph % (Auto) 43.0 H (20-40) % [place] % (Auto) 9.5 (2-11) % Eos % (Auto) 4.6 H (0-4) % Baso % (Auto) 0.8 (0-2) % Lymph # (Auto) 2.7 (1.2-4.9) X10*3/uL [place] # (Auto) 0.6 (0.1-1.2) X10*3/uL Eos # (Auto) 0.3 (0.0-0.4) X10*3/uL Baso # (Auto) 0.1 (0.0-0.2) X10*3/uL Abs Immat Gran (auto) 0.02 (0.00-0.03) X10*3/uL Absolute Neuts (auto) 2.6 (2.0-8.3) x10*3/uL Absolute Nucleated RBC 0.000 (0.0-0.012) X10*3/uL Nucleated RBC % (auto) 0.0 (0.0-0.2) /100WBC PT (10.0-13.1) SEC INR (0.9-1.1) APTT (26.0-36.4) SEC Sodium 142 (135-145) mmol/L Potassium 3.7 (3.3-5.1) mmol/L Chloride 106 (96-108) mmol/L Carbon Dioxide 25 (22-29) mmol/L Anion Gap 15 (12-20) BUN 8 L (9-16) mg/dL Creatinine 0.86 (0.5-1.4) mg/dL Estim Creat Clear Calc 87.7 Estimated GFR > 60 Random Glucose 103 (60-115) mg/dL Calcium 8.9 D (8.4-10.2) mg/dL Magnesium 1.8 (1.6-2.6) mg/dL Total Bilirubin 0.7 (0.0-1.0) mg/dL Direct Bilirubin 0.2 (0.0-0.5) mg/dL AST 65 H (5-31) U/L ALT 98 H (0-31) U/L Alkaline Phosphatase 78 (39-117) U/L Troponin I High Sens < 3.5 (<3.5-17.0) ng/L Total Protein 6.8 (6.5-8.0) g/dL Albumin 3.9 (3.5-5.0) g/dL COVID-19 (KENNETH) (Negative) COVID-19 Clin Com Influenza Type A (GERARD) (Negative) Influenza Type B (GERARD) (Negative) Influenza A & B Note 01/24/23 01/24/23 01/24/23 Range/Units 13:46 13:46 13:46 WBC (4.8-10.8) X10*3/uL RBC (4.20-5.50) X10*6/uL Hgb (12.0-16.0) g/dl Hct (37.0-47.0) % MCV (80.0-98.0) fL MCH (27.0-33.0) pg MCHC (31.0-35.0) g/dl RDW (11.0-16.0) % Plt Count (160-400) X10*3/uL MPV (9.4-12.3) fL Immature Gran % (Auto) (0.0-0.4) % Neut % (Auto) (45-73) % Lymph % (Auto) (20-40) % [place] % (Auto) (2-11) % Eos % (Auto) (0-4) % Baso % (Auto) (0-2) % Lymph # (Auto) (1.2-4.9) X10*3/uL [place] # (Auto) (0.1-1.2) X10*3/uL Eos # (Auto) (0.0-0.4) X10*3/uL Baso # (Auto) (0.0-0.2) X10*3/uL Abs Immat Gran (auto) (0.00-0.03) X10*3/uL Absolute Neuts (auto) (2.0-8.3) x10*3/uL Absolute Nucleated RBC (0.0-0.012) X10*3/uL Nucleated RBC % (auto) (0.0-0.2) /100WBC PT 11.4 (10.0-13.1) SEC INR 1.0 (0.9-1.1) APTT 28.6 (26.0-36.4) SEC Sodium (135-145) mmol/L Potassium (3.3-5.1) mmol/L Chloride (96-108) mmol/L Carbon Dioxide (22-29) mmol/L Anion Gap (12-20) BUN (9-16) mg/dL Creatinine (0.5-1.4) mg/dL Estim Creat Clear Calc Estimated GFR Random Glucose (60-115) mg/dL Calcium (8.4-10.2) mg/dL Magnesium (1.6-2.6) mg/dL Total Bilirubin (0.0-1.0) mg/dL Direct Bilirubin (0.0-0.5) mg/dL AST (5-31) U/L ALT (0-31) U/L Alkaline Phosphatase (39-117) U/L Troponin I High Sens (<3.5-17.0) ng/L Total Protein (6.5-8.0) g/dL Albumin (3.5-5.0) g/dL COVID-19 (KENNETH) Negative (Negative) COVID-19 Clin Com See Note Influenza Type A (GERARD) Negative (Negative) Influenza Type B (GERARD) Negative (Negative) Influenza A & B Note See Note <THEO Dunn - Last Filed: 01/24/23 16:48> Radiology Impression Discussion of test interpretation with radiology: I have reviewed the radiologist's reading. <THEO Dunn - Last Filed: 01/24/23 16:48> Radiologist Impression: My interpretation is in agreement with the radiologist's impression of this imaging study. EXAMINATION: XR CHEST CLINICAL INFORMATION: Cough COMPARISON: 08/21/2020 TECHNIQUE: 2 views of the chest were obtained. FINDINGS: The lungs are well expanded. No edema or effusion. There is a hazy opacity at the right midlung.. No pneumothorax. The cardiomediastinal silhouette is within normal limits. No acute osseous abnormality. XR/XR chest 2V IMPRESSION: Hazy opacity at the right midlung could represent atelectasis or pneumonia.? Follow-up after treatment to ensure resolution. Dictated By: Jose Vega MD Signed By: Electronically signed by Jose Vega MD 01/24/23 1442 <THEO Dunn - Last Filed: 01/24/23 16:48> Discharge Plan Discharge Clinical Impression: Bronchitis <THEO Mays - Last Filed: 01/24/23 13:05> Patient Disposition: Home, Self-Care <THEO Mays Last Filed: 01/24/23 13:05> Instructions: Acute Bronchitis (ED) <THEO Mays Last Filed: 01/24/23 13:05> Additional Instructions: Follow up with your primary care provider. Return to the emergency department immediately if your symptoms worsen or if you develop any dizziness, shortness of breath, difficulty breathing, chest pain, blurry vision, loss of vision, nausea, vomiting, abdominal pain, fever, chills, back pain, or any other complaints. <THEO Mays - Last Filed: 01/24/23 13:05> Prescriptions: New benzonatate 100 mg capsule 100 mg PO BID PRN (Reason: cough) 7 Days Qty: 14 0RF doxycycline hyclate 100 mg tablet 100 mg PO BID 7 Days Qty: 14 0RF prednisone 20 mg tablet 20 mg PO DAILY 7 Days Qty: 7 0RF omeprazole 20 mg capsule,delayed release(DR/EC) 20 mg PO DAILY Qty: 30 0RF No Action amlodipine 2.5 mg Tablet 2.5 mg PO DAILY lorazepam [Ativan] 0.5 mg Tablet 0.5 mg PO BEDTIME PRN (Reason: Anxiety) omeprazole 20 mg Capsule,Delayed Release(Dr/Ec) 20 mg PO DAILY <THEO Mays - Last Filed: 01/24/23 13:05> Referrals: [facility] [place] [facility] [place]] (Call to establish and follow up with a primary care provider. If you already have a primary care provider, please follow up with them.) [facility] [place] [facility] [place] [Provider Group] (Call to establish and follow up with a primary care provider. If you already have a primary care provider, please follow up with them.) [facility] [[facility]] (Call to establish and follow up with a primary care provider. If you already have a primary care provider, please follow up with them.) <THEO Mays - Last Filed: 01/24/23 13:05> Stand Alone Forms: Work/School Release <THEO Mays - Last Filed: 01/24/23 13:05> Interventions: ED Discharge Assessment Last Done: 01/24/23 15:10 <THEO Mays - Last Filed: 01/24/23 13:05> Discharge Date/Time: 01/24/23 15:11 <THEO Mays - Last Filed: 01/24/23 13:05> Print Language: Lao <THEO Mays - Last Filed: 01/24/23 13:05>
[2023-01-24 13:55] LABS: MANUAL DIFF FLAG NO
[2023-01-24 13:56] LABS: Basophils Absolute Auto 0.1 X10*3/uL (0.0-0.2); Basophils Percent Auto 0.8 % (0-2); Eosinophils Absolute Auto 0.3 X10*3/uL (0.0-0.4); Eosinophils Percent Auto 4.6 % (0-4); Hematocrit 42.3 % (37.0-47.0); Hemoglobin 13.3 g/dl (12.0-16.0); Imm Gran Abs Auto 0.02 X10*3/uL (0.00-0.03); Imm Gran Pct Auto 0.3 % (0.0-0.4); Lymphocytes Absolute Auto 2.7 X10*3/uL (1.2-4.9); Mean Corpuscular HGB Conc 31.4 g/dl (31.0-35.0); Mean Corpuscular Hemoglobin 26.5 pg (27.0-33.0); Mean Corpuscular Volume 84.3 fL (80.0-98.0); Mean Platelet Volume 11.5 fL (9.4-12.3); Monocytes Absolute Auto 0.6 X10*3/uL (0.1-1.2); Monocytes Percent Auto 9.5 % (2-11); Neutrophils Absolute Auto 2.6 x10*3/uL (2.0-8.3); Neutrophils Percent Auto 41.8 % (45-73); Platelet Count 185 X10*3/uL (160-400); Red Blood Count 5.02 X10*6/uL (4.20-5.50); White Blood Count 6.3 X10*3/uL (4.8-10.8)
[2023-01-24 14:01] LABS: Prothrombin Time 11.4 SEC (10.0-13.1)
[2023-01-24 14:04] LABS: Partial Thromboplastin Time 28.6 SEC (26.0-36.4)
[2023-01-24 14:09] VITALS: BP 149/98; PULSE 87; RESP 18; TEMP 36.5; O2SAT 98
[2023-01-24 14:18] LABS: Alanine Aminotransferase 98 U/L (0-31); Albumin Level 3.9 g/dL (3.5-5.0); Alkaline Phosphatase 78 U/L (39-117); Anion Gap 15 (12-20); Aspartate Amino Transferase 65 U/L (5-31); Bilirubin Direct 0.2 mg/dL (0.0-0.5); Bilirubin Total 0.7 mg/dL (0.0-1.0); Blood Urea Nitrogen 8 mg/dL (9-16); Calcium 8.9 mg/dL (8.4-10.2); Carbon Dioxide 25 mmol/L (22-29); Chloride 106 mmol/L (96-108); Creatinine Clr Calc Pharmacy 87.7; Estimated Glomerular Filt Rate > 60; Glucose Random 103 mg/dL (60-115); Magnesium 1.8 mg/dL (1.6-2.6); Potassium 3.7 mmol/L (3.3-5.1); Sodium 142 mmol/L (135-145); Total Protein 6.8 g/dL (6.5-8.0)
[2023-01-24 14:19] LABS: COVID-19 Test Negative (Negative); IDNOW Serial# 16C4AD1C
[2023-01-24 14:21] LABS: IDNOW Serial# 9DB6401D; Influenza A Negative (Negative); Influenza B2 Negative (Negative)
[2023-01-24 14:26] LABS: Troponin-I High Sensitivity < 3.5 ng/L (<3.5-17.0)
== END 2023-01-24 15:11 | disposition home or self-care (01) ==
PROVIDERS: Physician Assistant; Emergency Provider Emergency Medicine Emergency Medical Services
DX: J40 Bronchitis, not specified as acute or chronic (principal); Z20.822 Contact with and (suspected) exposure to COVID-19; I10 Essential (primary) hypertension; Z79.899 Other long term (current) drug therapy
CPT/HCPCS: 36415; 71046; 80048; 80076; 83735; 84484; 85025; 85610; 85730; 87502; 87635; 93005; 99283; 99284

== ENCOUNTER 2023-05-08 11:07 | Emergency (ER) | payer OTHER, SELFPAY ==
--- NOTE | ~2023-05-08 | US_ITS ---
EXAMINATION: US PELVIS CLINICAL INFORMATION: Pelvic pain COMPARISON: None available. TECHNIQUE: Ultrasound of the pelvis is performed using both transabdominal and transvaginal transducers along with Doppler. Transvaginal imaging is performed due to inadequate visualization transabdominally. FINDINGS: The uterus and right ovary is been removed. The left ovary measures 3.3 x 2.5 x 2.5 cm. There is a 2.3 x 2.1 x 2.2 cm minimally complex left ovarian cyst with single thin septation. Arterial and venous flow is documented to the left ovary. There is a small amount of fluid in the pelvis. US/US pelvic and transvaginal IMPRESSION: Small minimally complex left ovarian cyst.
[2023-05-08 11:10] VITALS: BP 130/89; PULSE 93; RESP 18; TEMP 36.1; O2SAT 97; BMI 33.5
--- NOTE | 2023-05-08 11:11 | ED_ITS ---
HPI - General Adult General Chief complaint: Nausea/Vomiting/Diarrhea Stated complaint: cramping, cant eat Time Seen by Provider: 05/08/23 12:39 Source: patient Mode of arrival: ambulatory Limitations: no limitations History of Present Illness HPI narrative: 43-year-old female presents with lower abdominal pain, nausea, vomiting and diarrhea. Symptoms started 3 days ago. She describes the pain is 10/10. The pain is cramping and sharp in nature. It is intermittent. The pain does not radiate. There is no clear relieving or exacerbating features. There has been no known fevers or chills. Diarrhea has been watery in nature with no blood. Her nausea vomiting have been nonbilious and nonbloody. Patient is having difficulty keeping any food or fluids down. Related Data Home Medications Medication Instructions Recorded Confirmed amlodipine 2.5 mg tablet 2.5 mg PO DAILY 08/21/20 08/21/20 lorazepam 0.5 mg tablet (Ativan) 0.5 mg PO BEDTIME PRN Anxiety 08/21/20 08/21/20 omeprazole 20 mg capsule,delayed 20 mg PO DAILY 08/21/20 08/21/20 release Previous Rx's Medication Instructions Recorded benzonatate 100 mg capsule 100 mg PO BID PRN cough 7 days #14 01/24/23 caps doxycycline hyclate 100 mg tablet 100 mg PO BID 7 days #14 tabs 01/24/23 omeprazole 20 mg capsule,delayed 20 mg PO DAILY #30 caps 01/24/23 release prednisone 20 mg tablet 20 mg PO DAILY 7 days #7 tabs 01/24/23 loperamide 2 mg tablet (Imodium 2 mg PO Q6H PRN loose stool #10 05/08/23 A-D) tabs ondansetron 4 mg disintegrating 4 mg PO Q8H PRN nausea and 05/08/23 tablet vomiting #10 tabs Allergies Allergy/AdvReac Type Severity Reaction Status Date / Time ibuprofen [IBUPROFEN] Allergy Intermediate ANGIOEDEMA Verified 05/08/23 11:12 SEAFOOD Allergy Unknown HIVES Uncoded 05/08/23 11:12 shellfish Allergy Unknown Anaphylaxis Uncoded 05/08/23 11:12 Review of Systems Review of Systems: CONSTITUTIONAL: Denies weight loss, fever and chills. HEENT: Denies changes in vision and hearing. RESPIRATORY: Denies SOB and cough. CV: Denies palpitations no CP. GI: See HPI : Denies dysuria and urinary frequency. MSK: Denies myalgia and joint pain. SKIN: Denies rash and pruritus. NEUROLOGICAL: Denies headache and syncope. PSYCHIATRIC: Denies recent changes in mood. Denies anxiety and depression. All other ROS are negative unless in HPI [facility] Past Medical History Medical History HTN (hypertension) Ovary absent Social History Social History Alcohol intake: never Advance Directives: No Advance Directives Information Provided: No Physical Exam ED Vital Signs: Vital Signs - 24 hr 05/08/23 11:10 05/08/23 12:42 05/08/23 15:00 Temperature 96.9 F 98.6 F Pulse Rate 93 82 83 Respiratory Rate 18 17 16 Blood Pressure 130/89 123/86 128/85 Pulse Oximetry 97 98 97 Oxygen Delivery Method Room Air Room Air Room Air BMI result Body Mass Index 33.5 GEN: Well developed, no acute distress, alert, oriented HEENT: Normocephalic, atraumatic, normal external ears, nose appears normal, no oropharyngeal edema or exudates Eyes: Normal to appearance Neck: Supple, no lymphadenopathy Respiratory: Talks in complete sentences, no respiratory distress, clear to auscultation bilaterally Cardiovascular: Regular rate and rhythm, no murmurs rubs or gallops Abdomen: Soft, lower abdominal tenderness, nondistended, no guarding, no rebo und Back: No CVA tenderness Extremities: No clubbing cyanosis or edema Neurologic: No focal neurologic deficits, cranial nerves 2-12 intact, strength is 5/5 bilaterally Skin: No rash Course Course Course Narrative: RME- 43 year old female presents for evaluation of lower abdominal pain and pancho rrhea. Plan for labs and UA. Potential imaging deferred to primary provider pending labs Reevaluation(s) Reevaluation #1: Patient is feeling much better at this time, will re-evaluate. She has an ultrasound that is still pending Time: 13:37 Reevaluation #2: The workup is complete. There is no ovarian cyst identified on ultrasound. Patient was made aware of this and will follow-up with her OBGYN. Will provide prescription for some symptomatic relief. She will return for any worsening or concerning symptoms. Time: 15:43 Medications Administered Discontinued Medications Generic Name Dose Route Start Last Admin Trade Name Warner PRN Reason Stop Dose Admin Sodium Chloride 1,000 mls @ 999 mls/hr 05/08/23 13:00 05/08/23 15:02 Ns IV 05/08/23 14:00 999 mls/hr .Q1H1M KATINA Administration Morphine Sulfate 4 mg 05/08/23 13:00 05/08/23 15:01 Morphine Sulfate 4 Mg/Ml Cartridge IVPUSH 05/08/23 13:01 4 mg ONCE ONE Administration Protocol Ondansetron HCl 4 mg 05/08/23 13:00 05/08/23 15:02 Ondansetron Hcl 4 Mg/2 Ml Vial IVPUSH 05/08/23 13:01 4 mg ONCE ONE Administration Medical Decision Making Medical Decision Making [facility] Narrative: Patient presents with lower abdominal pain, nausea, vomiting diarrhea. Dif ferential diagnosis includes gastroenteritis, viral illness, IBD, IBS, bacterial overgrowth, colitis, doubt AAA, dissection, torsion, TOA. Plan ultrasound, laboratory analysis and symptomatic relief, patient will have frequent re- evaluation. Differential Diagnosis Differential Diagnoses: The differential diagnosis associated with the pr esentation includes (See above) Lab Data [facility] Lab Attestation statement: I reviewed the patient's lab results. 05/08/23 11:52 05/08/23 11:52 Labs: Lab Results 05/08/23 05/08/23 05/08/23 Range/Units 11:52 11:52 14:49 WBC 7.7 (4.8-10.8) X10*3/uL RBC 5.06 (4.20-5.50) X10*6/uL Hgb 13.8 (12.0-16.0) g/dl Hct 43.3 (37.0-47.0) % MCV 85.6 (80.0-98.0) fL MCH 27.3 (27.0-33.0) pg MCHC 31.9 (31.0-35.0) g/dl RDW 12.9 (11.0-16.0) % Plt Count 194 (160-400) X10*3/uL MPV 11.4 (9.4-12.3) fL Immature Gran % (Auto) 0.3 (0.0-0.4) % Neut % (Auto) 54.5 (45-73) % Lymph % (Auto) 32.7 (20-40) % [place] % (Auto) 10.5 (2-11) % Eos % (Auto) 1.4 (0-4) % Baso % (Auto) 0.6 (0-2) % Lymph # (Auto) 2.5 (1.2-4.9) X10*3/uL [place] # (Auto) 0.8 (0.1-1.2) X10*3/uL Eos # (Auto) 0.1 (0.0-0.4) X10*3/uL Baso # (Auto) 0.1 (0.0-0.2) X10*3/uL Abs Immat Gran (auto) 0.02 (0.00-0.03) X10*3/uL Absolute Neuts (auto) 4.2 (2.0-8.3) x10*3/uL Absolute Nucleated RBC 0.000 (0.0-0.012) X10*3/uL Nucleated RBC % (auto) 0.0 (0.0-0.2) /100WBC Sodium 140 (135-145) mmol/L Potassium 3.6 (3.3-5.1) mmol/L Chloride 105 (96-108) mmol/L Carbon Dioxide 27 (22-29) mmol/L Anion Gap 12 (12-20) BUN 8 L (9-16) mg/dL Creatinine 0.93 (0.5-1.4) mg/dL Estim Creat Clear Calc 80.1 Estimated GFR > 60 Random Glucose 106 (60-115) mg/dL Calcium 9.4 (8.4-10.2) mg/dL Total Bilirubin 0.7 (0.0-1.0) mg/dL AST 112 H (5-31) U/L ALT 117 H (0-31) U/L Alkaline Phosphatase 79 (39-117) U/L Total Protein 7.7 (6.5-8.0) g/dL Albumin 4.1 (3.5-5.0) g/dL Lipase 37 (8-78) U/L Urine Color Dark Yellow Urine Appearance Clear Urine pH 6.0 (5.0-9.0) Ur Specific [place] >= 1.030 H (1.005-1.025) Urine Protein 30 (1+) H (Neg-Trace) mg/dL Urine Glucose (UA) Negative (Negative) mg/dL Urine Ketones Trace (Negative) mg/dL Urine Blood Negative (Negative) Urine Nitrite Negative (Negative) Ur Leukocyte Esterase Negative (Negative) Urine RBC 6-10 H (0-2) /HPF Urine WBC 0-5 (0-5) /HPF Ur Squamous Epith Cells 6-10 (0-2) /HPF Urine Bacteria Trace (None Seen) Hyaline Casts 11-20 (0-2) /LPF Urine Test (NEGATIVE) 05/08/23 Range/Units 14:49 WBC (4.8-10.8) X10*3/uL RBC (4.20-5.50) X10*6/uL Hgb (12.0-16.0) g/dl Hct (37.0-47.0) % MCV (80.0-98.0) fL MCH (27.0-33.0) pg MCHC (31.0-35.0) g/dl RDW (11.0-16.0) % Plt Count (160-400) X10*3/uL MPV (9.4-12.3) fL Immature Gran % (Auto) (0.0-0.4) % Neut % (Auto) (45-73) % Lymph % (Auto) (20-40) % [place] % (Auto) (2-11) % Eos % (Auto) (0-4) % Baso % (Auto) (0-2) % Lymph # (Auto) (1.2-4.9) X10*3/uL [place] # (Auto) (0.1-1.2) X10*3/uL Eos # (Auto) (0.0-0.4) X10*3/uL Baso # (Auto) (0.0-0.2) X10*3/uL Abs Immat Gran (auto) (0.00-0.03) X10*3/uL Absolute Neuts (auto) (2.0-8.3) x10*3/uL Absolute Nucleated RBC (0.0-0.012) X10*3/uL Nucleated RBC % (auto) (0.0-0.2) /100WBC Sodium (135-145) mmol/L Potassium (3.3-5.1) mmol/L Chloride (96-108) mmol/L Carbon Dioxide (22-29) mmol/L Anion Gap (12-20) BUN (9-16) mg/dL Creatinine (0.5-1.4) mg/dL Estim Creat Clear Calc Estimated GFR Random Glucose (60-115) mg/dL Calcium (8.4-10.2) mg/dL Total Bilirubin (0.0-1.0) mg/dL AST (5-31) U/L ALT (0-31) U/L Alkaline Phosphatase (39-117) U/L Total Protein (6.5-8.0) g/dL Albumin (3.5-5.0) g/dL Lipase (8-78) U/L Urine Color Urine Appearance Urine pH (5.0-9.0) Ur Specific [place] (1.005-1.025) Urine Protein (Neg-Trace) mg/dL Urine Glucose (UA) (Negative) mg/dL Urine Ketones (Negative) mg/dL Urine Blood (Negative) Urine Nitrite (Negative) Ur Leukocyte Esterase (Negative) Urine RBC (0-2) /HPF Urine WBC (0-5) /HPF Ur Squamous Epith Cells (0-2) /HPF Urine Bacteria (None Seen) Hyaline Casts (0-2) /LPF Urine Test NEGATIVE (NEGATIVE) Independent Interpretation I performed an independent interpretation of an: Ultrasound (Ovarian cyst identify, no other significant acute findings) Radiology Impression Discussion of test interpretation with radiology: I have reviewed the radiologist's reading. Radiologist Impression: US/US pelvic and transvaginal IMPRESSION: Small minimally complex left ovarian cyst. Dictated By: Lyudmila Butler MD Signed By: <Electronically signed by Lyudmila Butler MD in OV> 05/08/23 1514 Tests considered The following testing was considered but not selected: She CT and abdomen and pelvis Prescription Management I considered prescription management with: Pain Medication Discharge Plan Discharge Clinical Impression: Abdominal pain, acute, Nausea vomiting and diarrhea, LFT elevation, Cyst of left ovary Patient Disposition: Home, Self-Care Instructions: Acute Nausea and Vomiting (ED), Abdominal Pain (ED), Ovarian Cyst (ED) Additional Instructions: Have your liver function tests re-evaluated in 1-2 weeks. This is a simple blood draw that can be ordered by her primary care provider or gastro enterologist. Prescriptions: New ondansetron 4 mg tablet,disintegrating 4 mg PO Q8H PRN (Reason: nausea and vomiting) Qty: 10 0RF loperamide [Imodium A-D] 2 mg tablet 2 mg PO Q6H PRN (Reason: loose stool) Qty: 10 0RF No Action amlodipine 2.5 mg Tablet 2.5 mg PO DAILY lorazepam [Ativan] 0.5 mg Tablet 0.5 mg PO BEDTIME PRN (Reason: Anxiety) omeprazole 20 mg Capsule,Delayed Release(Dr/Ec) 20 mg PO DAILY benzonatate 100 mg capsule 100 mg PO BID PRN (Reason: cough) 7 Days Qty: 14 0RF doxycycline hyclate 100 mg tablet 100 mg PO BID 7 Days Qty: 14 0RF prednisone 20 mg tablet 20 mg PO DAILY 7 Days Qty: 7 0RF omeprazole 20 mg capsule,delayed release(DR/EC) 20 mg PO DAILY Qty: 30 0RF Referrals: Physician,Unknown J [Primary Care Provider] - 1 week (Primary care provider)
[2023-05-08 11:55] LABS: MANUAL DIFF FLAG NO
[2023-05-08 12:00] LABS: Basophils Absolute Auto 0.1 X10*3/uL (0.0-0.2); Basophils Percent Auto 0.6 % (0-2); Eosinophils Absolute Auto 0.1 X10*3/uL (0.0-0.4); Eosinophils Percent Auto 1.4 % (0-4); Hematocrit 43.3 % (37.0-47.0); Hemoglobin 13.8 g/dl (12.0-16.0); Imm Gran Abs Auto 0.02 X10*3/uL (0.00-0.03); Imm Gran Pct Auto 0.3 % (0.0-0.4); Lymphocytes Absolute Auto 2.5 X10*3/uL (1.2-4.9); Lymphocytes Percent Auto 32.7 % (20-40); Mean Corpuscular HGB Conc 31.9 g/dl (31.0-35.0); Mean Corpuscular Hemoglobin 27.3 pg (27.0-33.0); Mean Corpuscular Volume 85.6 fL (80.0-98.0); Mean Platelet Volume 11.4 fL (9.4-12.3); Monocytes Absolute Auto 0.8 X10*3/uL (0.1-1.2); Monocytes Percent Auto 10.5 % (2-11); Neutrophils Absolute Auto 4.2 x10*3/uL (2.0-8.3); Neutrophils Percent Auto 54.5 % (45-73); Platelet Count 194 X10*3/uL (160-400); Red Blood Count 5.06 X10*6/uL (4.20-5.50); Red Cell Distribution Width 12.9 % (11.0-16.0); White Blood Count 7.7 X10*3/uL (4.8-10.8)
[2023-05-08 12:21] LABS: Lipase 37 U/L (8-78)
[2023-05-08 12:42] VITALS: BP 123/86; PULSE 82; RESP 17; TEMP 37; O2SAT 98
[2023-05-08 13:16] LABS: Alanine Aminotransferase 117 U/L (0-31); Albumin Level 4.1 g/dL (3.5-5.0); Alkaline Phosphatase 79 U/L (39-117); Anion Gap 12 (12-20); Aspartate Amino Transferase 112 U/L (5-31); Bilirubin Total 0.7 mg/dL (0.0-1.0); Blood Urea Nitrogen 8 mg/dL (9-16); Calcium 9.4 mg/dL (8.4-10.2); Carbon Dioxide 27 mmol/L (22-29); Chloride 105 mmol/L (96-108); Creatinine Clr Calc Pharmacy 80.1; Estimated Glomerular Filt Rate > 60; Glucose Random 106 mg/dL (60-115); Potassium 3.6 mmol/L (3.3-5.1); Sodium 140 mmol/L (135-145); Total Protein 7.7 g/dL (6.5-8.0)
[2023-05-08 15:00] VITALS: BP 128/85; PULSE 83; RESP 16; O2SAT 97
[2023-05-08] MEDS: Morphine Sulfate 4 MG/ML CARTRIDGE IVPUSH (15:01)
[2023-05-08] MEDS: ondansetron HCL 4 MG/2 ML VIAL IVPUSH (15:02)
[2023-05-08] MEDS: 0.9 % Sodium Chloride 1,000 ML 999 ML IV (15:02)
[2023-05-08 15:24] LABS: Appearance Urine Clear; Color Urine Dark Yellow; Glucose Urine UA Negative (Negative); Leukocyte Esterase Urine Negative (Negative); Nitrite Urine Negative (Negative); Specific Gravity - Urine >= 1.030 (1.005-1.025); UMIC TRIGGER UACC YES; Urine Blood Negative (Negative); Urine Ketones Trace mg/dL (Negative); Urine Protein 30 (1+) mg/dL (Neg-Trace)
[2023-05-08 15:26] LABS: UPreg QC Valid YES; Urine Pregnancy NEGATIVE (NEGATIVE)
[2023-05-08 15:38] LABS: Bacteria Urine Trace (None Seen); WBC Urine 0-5 /HPF (0-5)
== END 2023-05-08 15:56 | disposition home or self-care (01) ==
PROVIDERS: Physician Assistant; Emergency Provider Emergency Medicine
DX: N83.202 Unspecified ovarian cyst, left side (principal); R11.2 Nausea with vomiting, unspecified; R79.89 Other specified abnormal findings of blood chemistry; R10.2 Pelvic and perineal pain; Z79.899 Other long term (current) drug therapy
CPT/HCPCS: 36415; 76830; 76856; 80053; 81001; 81025; 83690; 85025; 96374; 96375; 99284; J2270; J2405

== ENCOUNTER 2024-01-02 14:17 | Emergency (ER) | payer OTHER, SELFPAY ==
--- NOTE | ~2024-01-02 | XR_ITS ---
EXAMINATION: Sacrum / coccyx and lumbar spine. CLINICAL INDICATIONS: Low back pain. Sacrum and coccyx pain. COMPARISON: None. TECHNIQUE: 3 views lumbar spine and 3 views sacrum/coccyx. FINDINGS: SI joints are symmetrical. There is no visible fracture or bony abnormality involving the sacrum. This presacral and post sacral soft tissues are normal. Lumbar spine: There is mild straightening of lumbar lordosis likely spasm or positional.. The vertebral heights, alignment and disc heights are normal. No visible acute fracture, dislocation or subluxation seen. No lytic or sclerotic process seen. The prevertebral and paravertebral soft tissues are normal. XR/XR sacrum coccyx min 2V IMPRESSION: 1. Unremarkable sacrum and coccyx exam. 2. Mild straightening of lumbar lordosis likely spasm or positional. No visible acute fracture or dislocation seen.
--- NOTE | ~2024-01-02 | XR_ITS ---
EXAMINATION: Sacrum / coccyx and lumbar spine. CLINICAL INDICATIONS: Low back pain. Sacrum and coccyx pain. COMPARISON: None. TECHNIQUE: 3 views lumbar spine and 3 views sacrum/coccyx. FINDINGS: SI joints are symmetrical. There is no visible fracture or bony abnormality involving the sacrum. This presacral and post sacral soft tissues are normal. Lumbar spine: There is mild straightening of lumbar lordosis likely spasm or positional.. The vertebral heights, alignment and disc heights are normal. No visible acute fracture, dislocation or subluxation seen. No lytic or sclerotic process seen. The prevertebral and paravertebral soft tissues are normal. XR/XR lumbar spine 2-3V IMPRESSION: 1. Unremarkable sacrum and coccyx exam. 2. Mild straightening of lumbar lordosis likely spasm or positional. No visible acute fracture or dislocation seen.
[2024-01-02 14:48] VITALS: BP 162/99; PULSE 85; RESP 18; TEMP 36.6; O2SAT 97; BMI 33.7
[2024-01-02 19:51] VITALS: BP 158/100; PULSE 79; RESP 12; TEMP 36.9; O2SAT 97
--- NOTE | 2024-01-02 20:50 | ED_ITS ---
HPI - Back Pain/Injury General Chief Complaint: Back Pain/Injury Stated Complaint: Low Back Pain No Injury Time Seen by Provider: 01/02/24 19:21 Source: patient and RN notes reviewed Mode of arrival: ambulatory Limitations: no limitations History of Present Illness HPI Narrative: This is a 43-year-old female, with a past medical history of hypertension, and irritable bowel syndrome, presenting to the emergency department for evaluation of low back pain x1 week. Patient states that she developed low back pain after getting up from a seated position. She states that the pain has been constant intermittently radiates down her posterior leg. States that the pain stops about mid hamstring. She states that the pain worsens with movement. She states that she has a history of a herniated disc several years ago after sneezing. She denies any fevers, chills, chest pain, shortness of breath, nausea, or diarrhea She does report intermittent right-sided abdominal pain however states that she has had this for many months. She has been seen by a GI specialist, who has been following her for chronic diarrhea and abdominal pain. No other complaints or concerns at this time. MD elicited complaint: back pain and back injury Pertinent past history: prior back pain Timing: constant Severity: moderate Quality: aching Location: lumbar spine and sacrum Radiation: none Exacerbating factors: movement Relieving factors: immobilization Associated symptoms: denies other symptoms Treatments prior to arrival: cold therapy, heat therapy and NSAIDS Work related injury: No Related Data Home Medications Medication Instructions Recorded Confirmed amlodipine 2.5 mg tablet 2.5 mg PO DAILY 08/21/20 08/21/20 lorazepam 0.5 mg tablet (Ativan) 0.5 mg PO BEDTIME PRN Anxiety 08/21/20 08/21/20 omeprazole 20 mg capsule,delayed 20 mg PO DAILY 08/21/20 08/21/20 release Previous Rx's Medication Instructions Recorded benzonatate 100 mg capsule 100 mg PO BID PRN cough 7 days #14 01/24/23 caps doxycycline hyclate 100 mg tablet 100 mg PO BID 7 days #14 tabs 01/24/23 omeprazole 20 mg capsule,delayed 20 mg PO DAILY #30 caps 01/24/23 release prednisone 20 mg tablet 20 mg PO DAILY 7 days #7 tabs 01/24/23 loperamide 2 mg tablet (Imodium 2 mg PO Q6H PRN loose stool #10 05/08/23 A-D) tabs ondansetron 4 mg disintegrating 4 mg PO Q8H PRN nausea and 05/08/23 tablet vomiting #10 tabs cyclobenzaprine 10 mg tablet 10 mg PO TID PRN muscle spasm #14 01/02/24 tabs lidocaine 5 % topical patch 1 patch topical DAILY #30 ea 01/02/24 (Lidoderm) prednisone 20 mg tablet 20 mg PO DAILY 4 days #4 tabs 01/02/24 Allergies Allergy/AdvReac Type Severity Reaction Status Date / Time ibuprofen [IBUPROFEN] Allergy Intermediate ANGIOEDEMA Verified 01/02/24 14:48 SEAFOOD Allergy Unknown HIVES Uncoded 05/08/23 11:12 shellfish Allergy Unknown Anaphylaxis Uncoded 05/08/23 11:12 Review of Systems Review of Systems: Yes all other systems are reviewed and are negative Constitutional: Constitutional: Reports as per [facility] Past Medical History Medical History HTN (hypertension) Ovary absent Social History Social History Alcohol intake: current Alcohol intake frequency: holidays/special occasions only Smoked in Last 30 Days: No Use of substances other than those prescribed or required for medical reasons: No Advance Directives: No Advance Directives Information Provided: No Patient : No Physical Exam Vital Signs: Vital Signs: Last Vital Signs Temp 97.8 F 01/02/24 23:38 Pulse 87 01/02/24 23:38 Resp 12 01/02/24 23:38 BP 146/96 H 01/02/24 23:38 Pulse Ox 96 01/02/24 23:38 O2 Del Method Room Air 01/02/24 23:38 BMI result Body Mass Index 33.7 Const: General: cooperative, comfortable and no acute distress Orientation/consciousness: patient oriented x3 Limitations: no limitations HEENT: Head: Yes normal to inspection, Yes normocephalic and Yes atraumatic Ears: hearing grossly normal bilaterally General nose exam: Normal external nose present Face and sinus: Yes normal facial exam Mouth: Normal oral and palatal mucosa present, oropharynx normal and moist mucous membranes Throat: Yes posterior oropharynx normal Eyes: General: appearance normal, both eyes and all related structures Eyelids: Yes eyelids normal Conjunctivae: conjunctivae normal Sclerae: sclerae normal Pupils: Equal, round and reactive pupils present EOM: EOMs intact bilaterally Neck: Neck: Yes normal visual inspection, Yes full ROM and Yes no lymphadenopathy Lymphatic: no lymphadenopathy noted Chest: Chest palpation & inspection: normal inspection of the chest Resp: Effort & Inspection: normal respiratory effort and able to speak in complete sentences Auscultation: clear to auscultation bilaterally, no crackles, no rales, no rhonchi and no wheezes Cardio: Rate: regular rate Rhythm: regular rhythm Heart sounds: S1 normal heart sound present and S2 normal heart sound present GI: Other: Abdomen is soft, nontender, nondistended Inspection: Yes normal to inspection Back/Spine/Pelvis: Other: Tenderness palpation along the midline lumbar spine and sacrum. Positive straight leg raise. Lumbar paraspinous muscles with spasm noted Skin: General skin exam: no rashes or lesions noted Trauma: no lacerations or abrasions Wounds: no wounds Neuro: General: patient oriented x3 and moves all extremities Cranial nerves: Yes Equal, round and reactive pupils present Extrem: General: Yes normal to inspection Right upper extremity: normal to inspection Left upper extremity: normal to inspection Right lower extremity: normal to inspection Left lower extremity: normal to inspection Course Reevaluation(s) Reevaluation #1: X-rays return, evidence of muscle spasms, no bony abnormality seen. Discussed findings with patient. She is feeling better after receiving Valium and prednisone. Will discharge on 4 days of prednisone and muscle relaxants. Given return precautions. She understands and agrees with plan. She will follow-up with her primary care physician outpatient for follow-up. Patient stable for discharge Medications Administered Discontinued Medications Generic Name Dose Route Start Last Admin Trade Name Malikq PRN Reason Stop Dose Admin Diazepam 2 mg 01/02/24 20:39 01/02/24 20:56 Diazepam 2 Mg Tablet PO 01/02/24 20:40 2 mg ONCE ONE Administration Prednisone 40 mg 01/02/24 20:39 01/02/24 20:56 Prednisone 20 Mg Tablet PO 01/02/24 20:40 40 mg ONCE ONE Administration Medical Decision Making Medical Decision Making MDM Narrative: This is a 43-year-old female, with a history of hypertension, and IBS, presenting to the emergency department for evaluation of low back pain x 1 week. On arrival, patient hypertensive at 162/99, all other vital signs within normal limits. Patient has tenderness palpation along the lumbar midline spine sacrum. Patient has a positive straight leg raise, abdomen is soft nontender. Likely musculoskeletal injury. Will treat with Valium and prednisone, x-rays were ordered given midline spine. She has no urinary symptoms. This patient presents with back pain most consistent with lumbar spasm. Differential diagnoses includes lumbago versus musculoskeletal spasm / strain versus sciatica.No back pain red flags on history or physical. Presentation not consistent with malignancy (lack of history of malignancy, lack of B symptoms), fracture (no trauma, no bony tenderness to palpation), cauda equina (no bowel or urinary incontinence/retention, no saddle anesthesia, no distal weakness), pyelonephritis (afebrile, no CVAT, no urinary symptoms). Given the clinical picture, no indication for imaging at this time. Differential Diagnosis Differential Diagnoses: The differential diagnosis associated with the presentation includes See above Admission/Observation Consideration of admission/observation: Escalation of care including admission/observation considered Patient would have been admitted to the hospital had her work up had any findings where hospital admission was appropriate and her clinical presentation warranted hospital admission. Radiology Impression Discussion of test interpretation with radiology: I have reviewed the radiologist's reading. Radiologist Impression: EXAMINATION: Sacrum / coccyx and lumbar spine. CLINICAL INDICATIONS: Low back pain. Sacrum and coccyx pain. COMPARISON: None. TECHNIQUE: 3 views lumbar spine and 3 views sacrum/coccyx. FINDINGS: SI joints are symmetrical. There is no visible fracture or bony abnormality involving the sacrum. This presacral and post sacral soft tissues are normal. Lumbar spine: There is mild straightening of lumbar lordosis likely spasm or positional.. The vertebral heights, alignment and disc heights are normal. No visible acute fracture, dislocation or subluxation seen. No lytic or sclerotic process seen. The prevertebral and paravertebral soft tissues are normal. XR/XR sacrum coccyx min 2V IMPRESSION: 1. Unremarkable sacrum and coccyx exam. 2. Mild straightening of lumbar lordosis likely spasm or positional. No visible acute fracture or dislocation seen. Dictated By: Lobo Lafleur MD Discharge Plan Discharge Clinical Impression: Lumbar radiculopathy Patient Disposition: Home, Self-Care Instructions: Acute Low Back Pain (ED), Lumbar Radiculopathy (ED), Back Pain (ED) Additional Instructions: You were seen in the emergency department due to back pain Your x-rays do not show any bony abnormalities however does show evidence of muscle spasms. Please rest, apply heat or ice, gentle stretching massage can help Flexeril as a muscle relaxants, this can help with muscle spasms, please do not drink alcohol or drive while taking this medication. Follow-up with your primary care physician, physical therapy can be beneficial. Any new or worsening symptoms occur including but not limited to chest pain, shortness of breath, numbness and tingling into her groin, urinary symptoms, please return for re-evaluation. Prescriptions: New cyclobenzaprine 10 mg tablet 10 mg PO TID PRN (Reason: muscle spasm) Qty: 14 0RF prednisone 20 mg tablet 20 mg PO DAILY 4 Days Qty: 4 0RF lidocaine [Lidoderm] 5 % adhesive patch,medicated 1 patch topical DAILY Qty: 30 0RF Rx Instructions: leave on most painful area for up to 12 hrs No Action amlodipine 2.5 mg Tablet 2.5 mg PO DAILY lorazepam [Ativan] 0.5 mg Tablet 0.5 mg PO BEDTIME PRN (Reason: Anxiety) omeprazole 20 mg Capsule,Delayed Release(Dr/Ec) 20 mg PO DAILY benzonatate 100 mg capsule 100 mg PO BID PRN (Reason: cough) 7 Days Qty: 14 0RF doxycycline hyclate 100 mg tablet 100 mg PO BID 7 Days Qty: 14 0RF prednisone 20 mg tablet 20 mg PO DAILY 7 Days Qty: 7 0RF omeprazole 20 mg capsule,delayed release(DR/EC) 20 mg PO DAILY Qty: 30 0RF ondansetron 4 mg tablet,disintegrating 4 mg PO Q8H PRN (Reason: nausea and vomiting) Qty: 10 0RF loperamide [Imodium A-D] 2 mg tablet 2 mg PO Q6H PRN (Reason: loose stool) Qty: 10 0RF Stand Alone Forms: Work/School Release Interventions: ED Discharge Assessment Last Done: 01/03/24 00:12 Discharge Date/Time: 01/03/24 00:12
[2024-01-02] MEDS: diazePAM 2 MG TABLET PO (20:56)
[2024-01-02] MEDS: predniSONE 20 MG TABLET 40 MG PO (20:56)
[2024-01-02 21:59] VITALS: BP 152/91; PULSE 75; RESP 16; TEMP 36.8; O2SAT 97
[2024-01-02 23:38] VITALS: BP 146/96; PULSE 87; RESP 12; TEMP 36.6; O2SAT 96
== END 2024-01-03 00:12 | disposition home or self-care (01) ==
PROVIDERS: Emergency Provider Emergency Medicine
DX: M54.16 Radiculopathy, lumbar region (principal); M54.50 Low back pain, unspecified; I10 Essential (primary) hypertension; K58.9 Irritable bowel syndrome, unspecified; Z79.899 Other long term (current) drug therapy
CPT/HCPCS: 72100; 72220; 99283; 99284